=== PATIENT | male | born 1960 | race Caucasian/White ===

== ENCOUNTER 2020-02-09 12:42 | Inpatient (IN) | payer BC ==
[~2020-02-09] VITALS: Ht 188 cm; Wt 75.3 kg
[2020-02-09 16:12] VITALS: BP 127/83
[2020-02-09] MEDS ORDERED: ACETAMINOPHEN 325 MG TABLET PO PRN (16:15)
[2020-02-09] MEDS ORDERED: HYDROCODONE/ACETAMINOPHEN 5-325 MG TABLET PEG PRN ×2 (16:30→20:30)
[2020-02-09] MEDS ORDERED: BISACODYL 10 MG RECTAL RECTAL SUPPOSITORY PR PRN (16:45)
[2020-02-09] MEDS ORDERED: ACETAMINOPHEN 650 MG/20.3 ML SOLUTION UDCUP PEG PRN (16:45)
[2020-02-09] MEDS: VANCOMYCIN HCL 125 MG/2.5 ML SOLUTION ORAL.SYG PEG SCH (19:12)
[2020-02-09 21:00] VITALS: BP 91/49
[2020-02-09] MEDS ORDERED: LACTOBAC ACID/BULG/BIFID/THERM TABLET PEG SCH (21:00)
[2020-02-09] MEDS: ATENOLOL 25 MG TABLET PEG SCH (21:00)
[2020-02-09] MEDS: CHLORHEXIDINE GLUCONATE 0.12% 15 ML UDCUP ORAL RINSE PO SCH (21:11)
[2020-02-09] MEDS: LevETIRAcetam 100 MG/ML 5 ML SOLUTION UDCUP PEG SCH (21:12)
[2020-02-09] MEDS: LACTOBAC ACID/BULG/BIFID/THERM TABLET PEG SCH (21:12)
[2020-02-09] MEDS ORDERED: DEXTROSE 50%-WATER 25 GM/50 ML SYRINGE IVP PRN (21:45)
[2020-02-09] MEDS ORDERED: INSULIN REGULAR, HUMAN 100 UNITS/ML SQ PRN (21:45)
[2020-02-10] MEDS: VANCOMYCIN HCL 125 MG/2.5 ML SOLUTION ORAL.SYG PEG SCH ×5 (00:33→23:28)
[2020-02-10 00:45] VITALS: BP 90/48
[2020-02-10 00:47] VITALS: BP 90/48
[2020-02-10 01:01] LABS: GLUCOMETER DEV NAME(LOC) 2WR.1C; GLUCOSE,POINT OF CARE 101 MG/DL (70-110)
[2020-02-10 06:19] LABS: GLUCOMETER DEV NAME(LOC) 2WR.2B; GLUCOSE,POINT OF CARE 101 MG/DL (70-110)
[2020-02-10 07:23] LABS: BASOPHILS % (AUTO) 0.5 % (0.0-2.0); EOSINOPHILS % (AUTO) 8.6 % (1.0-6.0); HEMOGLOBIN 11.5 g/dL (13.5-17.5); LYMPHOCYTES # (AUTO) 1.1 K/uL (1.0-4.8); LYMPHOCYTES % (AUTO) 22.4 % (22.0-44.0); MEAN CORPUSCULAR HEMOGLOBIN 29.1 pg (26.0-34.0); MEAN CORPUSCULAR HGB CONC 32.8 G/dL (31.0-37.0); MEAN CORPUSCULAR VOLUME 89 fL (80-100); MONOCYTES # (AUTO) 0.6 K/uL (0.1-1.0); MONOCYTES % (AUTO) 11.6 % (2.0-9.0); NEUTROPHILS # (AUTO) 2.7 K/uL (1.8-7.7); NEUTROPHILS % (AUTO) 56.9 % (40.0-70.0); PLATELET COUNT (AUTO) 168 K/uL (150-450); RED BLOOD CELL COUNT(AUTO) 3.94 MIL/uL (4.50-5.90); RED CELL DISTRIBUTION WIDTH 15.8 % (11.5-14.5)
[2020-02-10 07:43] LABS: ALANINE AMINOTRANSFERASE 32 U/L (12-78); ALBUMIN 2.7 g/dL (3.4-5.0); ALKALINE PHOSPHATASE 66 U/L (46-116); ANION GAP 4 mmol/L (8-16); ASPARTATE AMINOTRANSFERASE 23 U/L (15-37); BILIRUBIN,TOTAL 0.6 mg/dL (0.1-1.0); CALCIUM, TOTAL 8.5 mg/dL (8.8-10.5); CARBON DIOXIDE 31 mmol/L (22-29); CHLORIDE 102 mmol/L (98-107); CREATININE 0.92 mg/dL (0.60-1.30); GLOMERULAR FILTR. RATE CALC > 60 mL/min (>60); GLUCOSE,RANDOM 110 mg/dL (70-110); POTASSIUM 3.8 mmol/L (3.5-5.1); SODIUM SERUM 137 mmol/L (136-145); TOTAL PROTEIN, SERUM 6.6 g/dL (6.4-8.2); UREA NITROGEN, BLOOD 20 mg/dL (7-18)
[2020-02-10 08:15] VITALS: BP 90/54
[2020-02-10] MEDS: ATENOLOL 25 MG TABLET PEG SCH ×2 (08:16→20:13)
[2020-02-10] MEDS: ENOXAPARIN SODIUM 40 MG/0.4 ML PF SYRINGE SQ SCH (08:17)
[2020-02-10] MEDS: MULTIVITAMINS WITH MINERALS, THERAPEUTIC 15 ML UDCUP PEG SCH (08:18)
[2020-02-10] MEDS: LACTOBAC ACID/BULG/BIFID/THERM TABLET PEG SCH ×2 (08:18→20:08)
[2020-02-10] MEDS: LevETIRAcetam 100 MG/ML 5 ML SOLUTION UDCUP PEG SCH ×2 (08:22→20:08)
[2020-02-10] MEDS: CHLORHEXIDINE GLUCONATE 0.12% 15 ML UDCUP ORAL RINSE PO SCH ×2 (08:23→20:08)
[2020-02-10 16:05] VITALS: BP 134/87
[2020-02-10 17:38] LABS: GLUCOMETER DEV NAME(LOC) 2WR.2B; GLUCOSE,POINT OF CARE 99 MG/DL (70-110)
[2020-02-10 20:00] VITALS: BP 95/57
[2020-02-10 23:44] VITALS: BP 109/59
[2020-02-10 23:58] LABS: GLUCOMETER DEV NAME(LOC) 2WR.2B; GLUCOSE,POINT OF CARE 100 MG/DL (70-110)
[2020-02-11] MEDS: VANCOMYCIN HCL 125 MG/2.5 ML SOLUTION ORAL.SYG PEG SCH ×4 (05:08→23:42)
[2020-02-11 05:23] LABS: GLUCOMETER DEV NAME(LOC) 2WR.1C; GLUCOSE,POINT OF CARE 115 MG/DL (70-110)
[2020-02-11 05:42] LABS: GLUCOMETER DEV NAME(LOC) 2WR.2B; GLUCOSE,POINT OF CARE 96 MG/DL (70-110)
[2020-02-11] MEDS: ATENOLOL 25 MG TABLET PEG SCH ×2 (09:00→20:54)
[2020-02-11 09:01] VITALS: BP 101/74
[2020-02-11] MEDS: MULTIVITAMINS WITH MINERALS, THERAPEUTIC 15 ML UDCUP PEG SCH (09:18)
[2020-02-11] MEDS: LACTOBAC ACID/BULG/BIFID/THERM TABLET PEG SCH ×2 (09:19→21:41)
[2020-02-11] MEDS: CHLORHEXIDINE GLUCONATE 0.12% 15 ML UDCUP ORAL RINSE PO SCH ×2 (09:19→21:41)
[2020-02-11] MEDS: LevETIRAcetam 100 MG/ML 5 ML SOLUTION UDCUP PEG SCH ×2 (09:19→21:41)
[2020-02-11] MEDS: ENOXAPARIN SODIUM 40 MG/0.4 ML PF SYRINGE SQ SCH (09:19)
[2020-02-11 12:13] LABS: APPEARANCE,URINE CLOUDY (CLEAR); BILIRUBIN,URINE NEGATIVE (NEGATIVE); GLUCOSE, URINE (UA) NEGATIVE (NEGATIVE); KETONES,URINE NEGATIVE (NEGATIVE); LEUKOCYTE ESTERASE ,URINE NEGATIVE (NEGATIVE); NITRATE,URINE NEGATIVE (NEGATIVE); OCCULT BLOOD,URINE NEGATIVE (NEGATIVE); PROTEIN,URINE NEGATIVE (NEGATIVE); UROBILINOGEN,URINE 0.2 mg/dL (<=1.0)
[2020-02-11 16:07] VITALS: BP 98/65
[2020-02-11 20:03] LABS: GLUCOMETER DEV NAME(LOC) 2WR.2B; GLUCOSE,POINT OF CARE 77 MG/DL (70-110)
[2020-02-11 23:56] VITALS: BP 95/57
[2020-02-12 00:03] LABS: GLUCOMETER DEV NAME(LOC) 2WR.2B; GLUCOSE,POINT OF CARE 96 MG/DL (70-110)
[2020-02-12] MEDS: VANCOMYCIN HCL 125 MG/2.5 ML SOLUTION ORAL.SYG PEG SCH ×3 (05:12→17:58)
[2020-02-12 05:46] LABS: GLUCOMETER DEV NAME(LOC) 2WR.1C; GLUCOSE,POINT OF CARE 99 MG/DL (70-110)
[2020-02-12 05:46] LABS: GLUCOMETER DEV NAME(LOC) 2WR.1C; GLUCOSE,POINT OF CARE 91 MG/DL (70-110)
[2020-02-12] MEDS: LevETIRAcetam 100 MG/ML 5 ML SOLUTION UDCUP PEG SCH ×2 (08:13→20:20)
[2020-02-12] MEDS: LACTOBAC ACID/BULG/BIFID/THERM TABLET PEG SCH ×2 (08:13→20:20)
[2020-02-12] MEDS: CHLORHEXIDINE GLUCONATE 0.12% 15 ML UDCUP ORAL RINSE PO SCH ×2 (08:13→20:20)
[2020-02-12] MEDS: ENOXAPARIN SODIUM 40 MG/0.4 ML PF SYRINGE SQ SCH (08:13)
[2020-02-12] MEDS: MULTIVITAMINS WITH MINERALS, THERAPEUTIC 15 ML UDCUP PEG SCH (08:13)
[2020-02-12] MEDS: ATENOLOL 25 MG TABLET PEG SCH ×2 (08:14→20:20)
[2020-02-12 09:01] VITALS: BP 100/60
[2020-02-12 16:57] VITALS: BP 106/74
[2020-02-12 20:45] VITALS: BP 95/64
[2020-02-13] MEDS: VANCOMYCIN HCL 125 MG/2.5 ML SOLUTION ORAL.SYG PEG SCH ×4 (00:44→19:07)
[2020-02-13 00:51] VITALS: BP 97/59
[2020-02-13] MEDS: MULTIVITAMINS WITH MINERALS, THERAPEUTIC 15 ML UDCUP PEG SCH (07:09)
[2020-02-13] MEDS: LACTOBAC ACID/BULG/BIFID/THERM TABLET PEG SCH ×2 (07:09→21:11)
[2020-02-13] MEDS: LevETIRAcetam 100 MG/ML 5 ML SOLUTION UDCUP PEG SCH ×2 (07:09→21:12)
[2020-02-13] MEDS: CHLORHEXIDINE GLUCONATE 0.12% 15 ML UDCUP ORAL RINSE PO SCH ×2 (07:09→21:11)
[2020-02-13] MEDS: ENOXAPARIN SODIUM 40 MG/0.4 ML PF SYRINGE SQ SCH (07:09)
[2020-02-13] MEDS: ATENOLOL 25 MG TABLET PEG SCH ×2 (07:22→21:00)
[2020-02-13] MEDS: LIDOCAINE 2% 30 ML JELLY TP PRN (08:52)
[2020-02-13 09:03] VITALS: BP 97/57
[2020-02-13 15:20] VITALS: BP 99/55
[2020-02-13 21:13] VITALS: BP 96/63
[2020-02-14] VITALS: BP 83/48
[2020-02-14] MEDS: VANCOMYCIN HCL 125 MG/2.5 ML SOLUTION ORAL.SYG PEG SCH ×5 (00:09→23:30)
[2020-02-14 04:58] LABS: ANION GAP 5 mmol/L (8-16); CARBON DIOXIDE 31 mmol/L (22-29); CHLORIDE 105 mmol/L (98-107); CREATININE 0.85 mg/dL (0.60-1.30); GLOMERULAR FILTR. RATE CALC > 60 mL/min (>60); GLUCOSE,RANDOM 101 mg/dL (70-110); POTASSIUM 3.6 mmol/L (3.5-5.1); SODIUM SERUM 141 mmol/L (136-145); UREA NITROGEN, BLOOD 13 mg/dL (7-18)
[2020-02-14 06:00] VITALS: BP 100/60
[2020-02-14] MEDS: ATENOLOL 25 MG TABLET PEG SCH (09:00)
[2020-02-14 09:02] VITALS: BP 94/63
[2020-02-14] MEDS: MULTIVITAMINS WITH MINERALS, THERAPEUTIC 15 ML UDCUP PEG SCH (09:02)
[2020-02-14] MEDS: LACTOBAC ACID/BULG/BIFID/THERM TABLET PEG SCH ×2 (09:02→20:57)
[2020-02-14] MEDS: LevETIRAcetam 100 MG/ML 5 ML SOLUTION UDCUP PEG SCH ×2 (09:02→20:57)
[2020-02-14] MEDS: ENOXAPARIN SODIUM 40 MG/0.4 ML PF SYRINGE SQ SCH (09:03)
[2020-02-14] MEDS: CHLORHEXIDINE GLUCONATE 0.12% 15 ML UDCUP ORAL RINSE PO SCH ×2 (09:03→20:57)
[2020-02-14 17:18] VITALS: BP 101/70
[2020-02-15] VITALS: BP 104/68
[2020-02-15] MEDS: VANCOMYCIN HCL 125 MG/2.5 ML SOLUTION ORAL.SYG PEG SCH ×4 (05:51→23:13)
[2020-02-15 09:00] VITALS: BP 102/68
[2020-02-15] MEDS: CHLORHEXIDINE GLUCONATE 0.12% 15 ML UDCUP ORAL RINSE PO SCH ×2 (10:39→20:35)
[2020-02-15] MEDS: MULTIVITAMINS WITH MINERALS, THERAPEUTIC 15 ML UDCUP PEG SCH (10:39)
[2020-02-15] MEDS: LACTOBAC ACID/BULG/BIFID/THERM TABLET PEG SCH ×2 (10:41→20:35)
[2020-02-15 15:00] VITALS: BP 109/68
[2020-02-15] MEDS: LIDOCAINE 2% 30 ML JELLY TP PRN (18:36)
[2020-02-15] MEDS ORDERED: LevETIRAcetam 100 MG/ML 5 ML SOLUTION UDCUP PEG SCH (21:00)
[2020-02-15 23:38] VITALS: BP 106/65
[2020-02-16] MEDS: VANCOMYCIN HCL 125 MG/2.5 ML SOLUTION ORAL.SYG PEG SCH ×2 (06:04→12:26)
[2020-02-16] MEDS ORDERED: HYDROCODONE/ACETAMINOPHEN 5-325 MG TABLET PO PRN (08:15)
[2020-02-16] MEDS ORDERED: ACETAMINOPHEN 325 MG TABLET PO PRN (08:45)
[2020-02-16 08:53] VITALS: BP 94/57
[2020-02-16] MEDS: LevETIRAcetam 250 MG TABLET PO SCH ×2 (09:11→20:20)
[2020-02-16] MEDS: CHLORHEXIDINE GLUCONATE 0.12% 15 ML UDCUP ORAL RINSE PO SCH ×2 (09:11→20:18)
[2020-02-16] MEDS: MULTIVITAMINS WITH MINERALS, THERAPEUTIC TABLET PO SCH (09:13)
[2020-02-16] MEDS: LACTOBAC ACID/BULG/BIFID/THERM TABLET PO SCH ×2 (09:13→20:18)
[2020-02-16 15:30] VITALS: BP 100/66
[2020-02-16] MEDS: VANCOMYCIN HCL 125 MG/2.5 ML SOLUTION ORAL.SYG PO SCH (20:18)
[2020-02-17 02:45] VITALS: BP 91/53
[2020-02-17 07:19] VITALS: BP 91/62
[2020-02-17] MEDS: LevETIRAcetam 250 MG TABLET PO SCH (08:14)
[2020-02-17] MEDS: MULTIVITAMINS WITH MINERALS, THERAPEUTIC TABLET PO SCH (08:14)
[2020-02-17] MEDS: LACTOBAC ACID/BULG/BIFID/THERM TABLET PO SCH ×2 (08:15→20:53)
[2020-02-17] MEDS: CHLORHEXIDINE GLUCONATE 0.12% 15 ML UDCUP ORAL RINSE PO SCH ×2 (08:19→20:53)
[2020-02-17] MEDS: VANCOMYCIN HCL 125 MG/2.5 ML SOLUTION ORAL.SYG PO SCH ×2 (08:21→20:53)
[2020-02-17 15:38] VITALS: BP 91/69
[2020-02-17] MEDS: LevETIRAcetam 500 MG TABLET PO SCH (20:53)
[2020-02-17 23:00] VITALS: BP 95/58
[2020-02-18 07:35] VITALS: BP 101/64
[2020-02-18] MEDS: LevETIRAcetam 500 MG TABLET PO SCH ×2 (09:29→21:31)
[2020-02-18] MEDS: CHLORHEXIDINE GLUCONATE 0.12% 15 ML UDCUP ORAL RINSE PO SCH ×2 (09:29→21:31)
[2020-02-18] MEDS: LACTOBAC ACID/BULG/BIFID/THERM TABLET PO SCH ×2 (09:29→21:31)
[2020-02-18] MEDS: MULTIVITAMINS WITH MINERALS, THERAPEUTIC TABLET PO SCH (09:29)
[2020-02-18] MEDS: VANCOMYCIN HCL 125 MG/2.5 ML SOLUTION ORAL.SYG PO SCH ×2 (09:34→21:32)
[2020-02-18 15:00] VITALS: BP 103/60
[2020-02-18] MEDS ORDERED: LEVE500T53 PO (23:08)
[2020-02-18] MEDS ORDERED: LACT1TAB26 PO (23:11)
[2020-02-18] MEDS ORDERED: VANC125C6 PO (23:18)
[2020-02-18] MEDS ORDERED: VANC125C12 PO (23:19)
[2020-02-19 04:34] VITALS: BP 102/69
[2020-02-19 06:37] LABS: BASOPHILS % (AUTO) 0.5 % (0.0-2.0); EOSINOPHILS % (AUTO) 5.5 % (1.0-6.0); HEMATOCRIT 34.6 % (41-53); HEMOGLOBIN 11.4 g/dL (13.5-17.5); LYMPHOCYTES # (AUTO) 1.4 K/uL (1.0-4.8); LYMPHOCYTES % (AUTO) 25.4 % (22.0-44.0); MEAN CORPUSCULAR HEMOGLOBIN 29.5 pg (26.0-34.0); MEAN CORPUSCULAR HGB CONC 32.8 G/dL (31.0-37.0); MEAN CORPUSCULAR VOLUME 90 fL (80-100); MONOCYTES # (AUTO) 0.6 K/uL (0.1-1.0); MONOCYTES % (AUTO) 10.9 % (2.0-9.0); NEUTROPHILS # (AUTO) 3.2 K/uL (1.8-7.7); NEUTROPHILS % (AUTO) 57.7 % (40.0-70.0); PLATELET COUNT (AUTO) 154 K/uL (150-450); RED BLOOD CELL COUNT(AUTO) 3.85 MIL/uL (4.50-5.90)
[2020-02-19 06:56] LABS: ALANINE AMINOTRANSFERASE 18 U/L (12-78); ALBUMIN 2.7 g/dL (3.4-5.0); ALKALINE PHOSPHATASE 54 U/L (46-116); ANION GAP 3 mmol/L (8-16); ASPARTATE AMINOTRANSFERASE 19 U/L (15-37); BILIRUBIN,TOTAL 0.6 mg/dL (0.1-1.0); CALCIUM, TOTAL 8.7 mg/dL (8.8-10.5); CARBON DIOXIDE 29 mmol/L (22-29); CHLORIDE 107 mmol/L (98-107); GLOMERULAR FILTR. RATE CALC > 60 mL/min (>60); GLUCOSE,RANDOM 89 mg/dL (70-110); SODIUM SERUM 139 mmol/L (136-145); TOTAL PROTEIN, SERUM 6.4 g/dL (6.4-8.2); UREA NITROGEN, BLOOD 11 mg/dL (7-18)
[2020-02-19] MEDS: LACTOBAC ACID/BULG/BIFID/THERM TABLET PO SCH ×2 (08:24→20:54)
[2020-02-19] MEDS: LevETIRAcetam 500 MG TABLET PO SCH (08:24)
[2020-02-19] MEDS: CHLORHEXIDINE GLUCONATE 0.12% 15 ML UDCUP ORAL RINSE PO SCH ×2 (08:25→20:54)
[2020-02-19] MEDS: VANCOMYCIN HCL 125 MG/2.5 ML SOLUTION ORAL.SYG PO SCH ×2 (08:25→20:54)
[2020-02-19] MEDS: MULTIVITAMINS WITH MINERALS, THERAPEUTIC TABLET PO SCH (08:26)
[2020-02-19 09:00] VITALS: BP 89/67
[2020-02-19 16:00] VITALS: BP 113/66
[2020-02-19 21:06] VITALS: BP 93/61
[2020-02-20] MEDS ORDERED: MULT-248 PO (00:22)
[2020-02-20] MEDS: VANCOMYCIN HCL 125 MG/2.5 ML SOLUTION ORAL.SYG PO SCH ×2 (08:10→20:35)
[2020-02-20] MEDS: MULTIVITAMINS WITH MINERALS, THERAPEUTIC TABLET PO SCH (08:10)
[2020-02-20] MEDS: CHLORHEXIDINE GLUCONATE 0.12% 15 ML UDCUP ORAL RINSE PO SCH ×2 (08:10→20:35)
[2020-02-20 08:11] VITALS: BP 111/72
[2020-02-20] MEDS: LACTOBAC ACID/BULG/BIFID/THERM TABLET PO SCH ×2 (08:11→20:35)
[2020-02-20] MEDS: LevETIRAcetam 500 MG TABLET PO SCH (08:11)
[2020-02-20 16:19] VITALS: BP 93/68
[2020-02-20 19:05] VITALS: BP 110/70
[2020-02-21 04:33] VITALS: BP 105/64
[2020-02-21] MEDS: CHLORHEXIDINE GLUCONATE 0.12% 15 ML UDCUP ORAL RINSE PO SCH (08:38)
[2020-02-21] MEDS: VANCOMYCIN HCL 125 MG/2.5 ML SOLUTION ORAL.SYG PO SCH (08:39)
[2020-02-21] MEDS: MULTIVITAMINS WITH MINERALS, THERAPEUTIC TABLET PO SCH (08:39)
[2020-02-21] MEDS: LevETIRAcetam 500 MG TABLET PO SCH (08:39)
[2020-02-21] MEDS: LACTOBAC ACID/BULG/BIFID/THERM TABLET PO SCH (08:39)
[2020-02-21 09:02] VITALS: BP 92/63
[2020-02-24] MEDS ORDERED: VANCOMYCIN HCL 125 MG/2.5 ML SOLUTION ORAL.SYG PO SCH (09:00)
== END 2020-02-21 13:03 | disposition home or self-care (01) | DRG 56 ==
LOC: 2WR 15:16
PROVIDERS: ADMIT Physical Medicine & Rehabilitation; ATTEND Physical Medicine & Rehabilitation
DX: I69.351 Hemiplegia and hemiparesis following cerebral infarction affecting right dominant side (principal); I61.9 Nontraumatic intracerebral hemorrhage, unspecified; E46 Unspecified protein-calorie malnutrition; E87.1 Hypo-osmolality and hyponatremia; R47.01 Aphasia; R13.10 Dysphagia, unspecified; D64.9 Anemia, unspecified
CPT/HCPCS: 74230; 83735; 87081; 92507; 92523; 92526; 92610; 92611; 95816; 97110; 97112; 97116; 97163; 97166; 97530; 97535; 99366; J1650